=== PATIENT | female | born 1985 | race Caucasian/White ===

== ENCOUNTER 2022-07-11 13:31 | Outpatient (CLI) | payer BC | END 2022-07-11 13:32 | disposition home or self-care (01) | LOC: CSHULT 13:31 | PROVIDERS: ATTEND Family Medicine | DX: R00.2 Palpitations (principal); Z82.49 Family history of ischemic heart disease and other diseases of the circulatory system | CPT/HCPCS: 93306 ==

== ENCOUNTER 2023-10-02 13:04 | Outpatient (CLI) | payer BC | END 2023-10-02 13:05 | disposition home or self-care (01) | LOC: CSHULT 13:04 | PROVIDERS: ATTEND Internal Medicine Hematology & Oncology | DX: Z01.810 Encounter for preprocedural cardiovascular examination (principal); C50.812 Malignant neoplasm of overlapping sites of left female breast | CPT/HCPCS: 93306 ==

== ENCOUNTER 2024-01-23 14:06 | Outpatient (CLI) | payer BC | END 2024-01-23 14:07 | disposition home or self-care (01) | LOC: CSHULT 14:06 | PROVIDERS: ATTEND Internal Medicine Hematology & Oncology | DX: C50.812 Malignant neoplasm of overlapping sites of left female breast (principal); Z17.31 Human epidermal growth factor receptor 2 positive status; I42.7 Cardiomyopathy due to drug and external agent; Z79.899 Other long term (current) drug therapy | CPT/HCPCS: 93306 ==